=== PATIENT | female | born 1985 | race African-American/Black ===

== ENCOUNTER 2018-11-24 03:28 | Emergency (ER) | payer MEDICARE, MEDICAID ==
[~2018-11-24] VITALS: Ht 157.5 cm; Wt 75.5 kg
[~2018-11-24 03:28] MED LIST: INSU100C5 SQ-INSULIN; INSU100V8 SQ
[2018-11-24 03:31] VITALS: BP 142/85
[2018-11-24] MEDS ORDERED: METF500T17 PO (03:57)
[2018-11-24] MEDS ORDERED: DIPHENHYDRAMINE 25 MG CAPSULE PO ONE ×2 (04:00→06:00)
[2018-11-24] MEDS ORDERED: FAMOTIDINE 20 MG TABLET PO ONE (04:00)
[2018-11-24] MEDS ORDERED: FAMOTIDINE 20 MG TABLET ONE (04:02)
[2018-11-24] MEDS ORDERED: DIPHENHYDRAMINE 25 MG CAPSULE ONE (04:02)
[2018-11-24] MEDS ORDERED: ONDANSETRON ODT 4 MG ONE (04:05)
--- NOTE | 2018-11-24 04:11 | NUR ---
PT RESTING ON GURNEY. STARTED HAVING NAUSEA AND VOMITING TODAY ALONG WITH ITCHING ALL OVER BODY. STATES HASN'T CHECKED BLOOD SUGAR SINCE YESTERD. BLOOD SUGAR CHECK 319 AT BEDSIDE. PA AT BEDSIDE. INFORMED PT WILL START WITH BENADRYL FOR THE ITCHING. AFTER PA LEFT THE ROOM PT THEN ASKED THIS NURSE FOR SOMETHING FOR PAIN AND WANTED ALL MEDICATIONS TO BE IM INJECTIONS. SPOKE WITH MICHAEL FISCHER. PT OFFERRED BENADRYL 25MG PO AND REFUSED, WANTS SOMETHING FOR NAUSEA. SPOKE AGAIN WITH PA AND RECIEVED ORDER FOR ZOFRAN 4MG PO. OFERRED ZOFRAN TO PT WHICH SHE REFUSED. PT STATES "SHE HAS BEEN THROWING UP ALL DAY WHY ARE YOU THROWING PILLS DOWN MY THROAT. I WANT IM OR IV. SHE IS JUST A PA I WANT A REAL DOCTOR TO COME TALK TO ME. I WILL DO THE LAB WORK BUT IM NOT TAKING OUR PILLS." MICHAEL FISCHER NOTIFIED.
[2018-11-24] MEDS ORDERED: ONDANSETRON ODT 4 MG PO ONE ×2 (04:30→06:00)
--- NOTE | 2018-11-24 04:32 | NUR ---
INFORMED PT THAT UPDATED PA HER CONCERNS. PHYSICIAN WILL BE IN TO SPEAK WITH PT. PT STATES " I HATE STUDENTS AND PA'S."
--- NOTE | 2018-11-24 05:17 | NUR ---
PT SLEEPING IN ROOM. NO VOMITING SINCE ARRIVAL. VSS.
[2018-11-24 05:25] LABS: BASOPHILS # (AUTO) 0.08 x10^3/uL (0-0.1); BASOPHILS % (AUTO) 2 % (0-1); EOSINOPHILS # (AUTO) 0.12 x10^3/uL (0-0.4); EOSINOPHILS % (AUTO) 2 % (1-7); LYMPHOCYTES # (AUTO) 2.19 x10^3/uL (1-3.4); LYMPHOCYTES % (AUTO) 40 % (22-44); MD NO; MEAN CORPUSCULAR HEMOGLOBIN 26.7 pg (27.0-34.8); MEAN CORPUSCULAR VOLUME 81.1 fL (80-100); MEAN PLATELET VOLUME 9.7 fL (7.4-10.4); MONOCYTES % (AUTO) 6 % (2-9); NEUTROPHILS # (AUTO) 2.75 x10^3/uL (1.8-6.8); NEUTROPHILS % (AUTO) 51 % (42-75); PLATELET COUNT 267 x10^3/uL (130-400); RED BLOOD COUNT 4.53 x10^6/uL (3.82-5.3); RED CELL DISTRIBUTION WIDTH 17.2 % (9.6-15.2)
[2018-11-24 05:31] LABS: ALBUMIN 3.3 g/dL (3.4-5.0); ANION GAP 5 mmol/L (5-15); CHLORIDE 102 mmol/L (98-107)
[2018-11-24 05:35] LABS: CREATININE 0.77 mg/dL (0.55-1.02)
--- NOTE | 2018-11-24 06:14 | NUR ---
Patient/Caregiver given discharge instructions and they have confirmed that they understand the instructions. Patient ambulatory with steady gait.
== END 2018-11-24 06:49 | disposition home or self-care (01) ==
LOC: ED 06:40
DX: E11.65 Type 2 diabetes mellitus with hyperglycemia (principal); R11.2 Nausea with vomiting, unspecified; T78.40XA Allergy, unspecified, initial encounter
CPT/HCPCS: 80048; 82040; 82962; 84703; 85025; 93005; 99284; Q0162; Q0163